=== PATIENT | male | born 1995 | race Caucasian/White ===

== ENCOUNTER 2016-10-04 21:59 | Emergency (ER) | payer BC, OTHER ==
--- NOTE | 2016-10-04 22:26 | ERNOTE ---
Medical Problem HPI - General Chief Complaint: Fever Time Seen by Provider: 10/04/16 22:11 Source: patient, family Exam Limitations: no limitations - Immun/Allergies/Home Medications Immunizations: IMMUNIZATION HX Immunizations Up to Date Yes History of Influenza Vaccine No Hx Pneumococcal Vaccination No Allergies/Adverse Reactions: Allergies No Known Allergies Allergy (Unverified 09/21/16 08:35) Home Medications: HOME MEDICATIONS NK [No Home Medication] 09/21/16 [Last Taken Unknown] - History of Present History Narrative: Pt has had mild cough and fever for 2 days, today his fever spiked to 103.9 at home by temporal thermometer Timing: getting worse Severity: moderate Modifying Factors - (Improves): Present: medication - temporarily Review of Systems - Review of Systems Constitutional: Present: See HPI, recent illness, fever, chills, fatigue - did not go to work today EYE: Present: no symptoms reported ENT: Present: sore throat. Absent: ear pain, ear discharge Respiratory: Present: See HPI, cough Cardiology: Present: no symptoms reported Gastrointestinal/Abdominal: Present: no symptoms reported Genitourinary: Present: no symptoms reported Musculoskeletal: Present: no symptoms reported Skin: Present: no symptoms reported Neurological: Present: no symptoms reported Endocrine: Present: no symptoms reported Hematologic/Lymphatic: Present: no symptoms reported Psych: Present: no symptoms reported - Patient's Past Medical History Patient History - Medical: Anxiety, Depression Patient History - Cardiac/Respiratory: No pertinent hx Patient History - Cancer: No Hx of Cancer Patient History - Surgical Procedures: Other Patient History - Other: None - Social History Living Situations: home Abuse History: No History of abuse Psych History: Hx of Anxiety, Hx of Depression Smoking Status: Current every day smoker Patient requests Smoking Cessation Consult: No Initiate information on Smoking Cessation: No Alcohol Use: occasionally Drug Use: none - Immunizations Immunizations Up to Date: Yes Hx Pneumococcal Vaccination: No History of Influenza Vaccine: No Physical Exam - Physical Exam General Appearance: Present: wd/wn, alert, no apparent distress Eye Exam: Normal inspection: bilateral Ears, Nose, Throat: Present: nasal congestion, pharyngeal erythema - generally. Absent: tonsillar exudate Neck: Present: normal inspection, nontender. Absent: lymphadenopathy (R), lymphadenopathy (L) Respiratory: Present: no respiratory distress, normal breath sounds, no accessory muscle use, chest nontender, lungs clear Cardiovascular/Chest: Present: regular rate, rhythm, no murmur, normal peripheral pulses Extremity Exam: Present: normal inspection, no edema Neurological Exam: Present: alert, oriented, normal mood/affect, no motor/ sensory deficits Skin Exam: Present: normal color, warm/dry Lymphatic Exam: Present: no adenopathy ED Progress - Results and Orders Patient's Lab Results:: I have reviewed the patient's lab results. Results and Orders: Laboratory Tests 10/04/16 10/04/16 22:25 Unknown Influenza Type A Ag Negative Influenza Type B Ag Negative Group A Strep Rapid Negative - Vital Signs Patient's Vital Signs:: I have reviewed the patient's vital signs. Vital Signs: Vital Signs 10/04/16 22:01 Temperature 37.6 C H Pulse Rate 125 H Respiratory 16 Rate Blood Pressure 118/75 O2 Sat by Pulse 97 Oximetry - Progress/Reassessment Chief Complaint: Fever Progress:: Improved Departure - Departure Clinical Impression: Upper respiratory infection Qualifiers: URI type: acute nasopharyngitis (common cold) Qualified Code(s): J00 - Acute nasopharyngitis [common cold] Disposition: Home self-care Condition: Good Instructions: Upper Respiratory Infection, Adult, [id number] Additional Instructions: Drink plenty of fluids. get plenty of rest, see your regular doctor if not improving in 5-7 days
[2016-10-04 23:26] VITALS: BP 120/73
== END 2016-10-04 23:25 | disposition home or self-care (01) ==
LOC: ER 21:59
DX: J00 Acute nasopharyngitis [common cold] (principal)

== ENCOUNTER 2017-07-06 01:47 | Emergency (ER) | payer BC, OTHER ==
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
[2017-07-06 02:38] VITALS: BP 105/62
== END 2017-07-06 02:33 | disposition home or self-care (01) ==
LOC: ER 01:47
DX: S13.9XXA Sprain of joints and ligaments of unspecified parts of neck, initial encounter (principal); S20.219A Contusion of unspecified front wall of thorax, initial encounter; F17.200 Nicotine dependence, unspecified, uncomplicated; V40.5XXA Car driver injured in collision with pedestrian or animal in traffic accident, initial encounter; Y92.411 Interstate highway as the place of occurrence of the external cause